=== PATIENT | female | born 1955 | race Caucasian/White ===

== ENCOUNTER 2017-06-02 15:40 | Emergency (ER) | payer MEDICAID ==
--- NOTE | 2017-06-02 17:31 | RAD ---
HISTORY: Cough COMPARISON: None available. TECHNIQUE: Chest PA and lateral FINDINGS: LUNGS: No focal consolidation. Please note that chest x-ray has limited sensitivity for the detection of pulmonary masses. PLEURA: No significant pleural effusion identified. No definite pneumothorax . CARDIOVASCULAR: The cardiomediastinal silhouette appears within normal limits of size. OSSEOUS STRUCTURES: No acute osseous abnormality identified. VISUALIZED UPPER ABDOMEN: Unremarkable. OTHER FINDINGS: None. IMPRESSION: No focal consolidation.
--- NOTE | 2017-06-02 17:33 | C.PDOC ---
History Of Present Illness 61 yo female w/o significant PMHx come in for evaluation of bodyaches, malaise, subjective fever for past 2 days, (+) occasional dry cough. Otherwise, pt denies high fever, lethargy, drooling, neck pain, CP, SOB, dyspnea, diaphoresis , palpitation,. abd. pain, V/D, UTi sx. Ambulate to ED for evaluation, not in any apparent distress. Time Seen by Provider: 06/02/17 16:47 Chief Complaint (Nursing): Flu-like Symptoms History Per: Patient Past Medical History Reviewed: Historical Data, Nursing Documentation, Vital Signs Vital Signs: Last Vital Signs Temp 98.8 F 06/02/17 16:38 Pulse 104 H 06/02/17 16:38 Resp 20 06/02/17 16:38 BP 108/70 06/02/17 16:38 Pulse Ox 99 06/02/17 16:38 - Medical History PMH: HTN Family History: States: No Known Family Hx - Social History Hx Tobacco Use: No Hx Alcohol Use: No Hx Substance Use: No - Immunization History Hx Tetanus Toxoid Vaccination: No Hx Influenza Vaccination: No Hx Pneumococcal Vaccination: No Review Of Systems Except As Marked, All Systems Reviewed And Found Negative. Constitutional: Positive for: Fever (subjective), Chills, Malaise ENT: Positive for: Nose Discharge, Nose Congestion. Negative for: Ear Discharge , Throat Pain, Throat Swelling Cardiovascular: Negative for: Chest Pain, Edema, Light Headedness Respiratory: Positive for: Cough. Negative for: Shortness of Breath, Wheezing Gastrointestinal: Negative for: Nausea, Vomiting, Abdominal Pain, Diarrhea Genitourinary: Negative for: Dysuria Musculoskeletal: Negative for: Neck Pain Skin: Negative for: Rash Neurological: Negative for: Weakness, Numbness, Altered Mental Status, Headache , Dizziness Physical Exam - Physical Exam Appears: Well, Non-toxic, No Acute Distress Skin: Normal Color, Warm, Dry, No Rash Head: Normacephalic Eye(s): bilateral: PERRL Ear(s): Bilateral: Normal Nose: No Flaring, Discharge (SCANT CLEAR B/L) Oral Mucosa: Moist, No Drooling Throat: No Erythema, No Drooling Neck: Trachea Midline, Supple Cardiovascular: Rhythm Regular, No Murmur Respiratory: No Decreased Breath Sounds, No Accessory Muscle Use, No Rales, No Rhonchi, No Stridor, No Wheezing Gastrointestinal/Abdominal: Soft, No Tenderness, No Distention, No Guarding, No Rebound Back: No CVA Tenderness Extremity: Normal ROM, No Deformity, No Swelling Neurological/Psych: Oriented x3, Normal Speech ED Course And Treatment O2 Sat by Pulse Oximetry: 99 Pulse Ox Interpretation: Normal - Radiology CXR: Interpreted by Me, Viewed By Me, Read By Radiologist CXR Interpretation: Yes: No Acute Disease Progress Note: On re-evaluation, pt is afebrile, hemodynamicaly stable. NOn- toxic. Tolerate PO well in ED. PulsEOx 99% RA. Neck: Supple, (-) meningeal sign, (-) JVD. ENT: no acute findings. Lungs: CTA B/L, BS equal B/L. Abd: benign. Back: (-) CVA tenderness. Neurologicaly intact. CXR review and appears normal study. Pt has clinical findings c/w Influenza-like illness. pt advised. ref. to f/u with PMD in 2-3 days for re-eval. return if any worsening or new changes. Disposition Counseled Patient/Family Regarding: Studies Performed, Diagnosis, Need For Followup, Rx Given - Disposition Referrals: Kathy Bautista MD [Staff Provider] - Disposition: HOME/ ROUTINE Disposition Time: 17:30 Condition: STABLE Additional Instructions: ENCOURAGE FLUIDS TAKE MEDICATION PRESCRIBED FOLLOW UP WITH PMD IN2 -3 DAYS FOR RE-EVALUATION. RETURN TO ED IF ANY WORSENING OR NEW CHANGES. Prescriptions: Ibuprofen [Motrin Tab] 600 mg PO Q6 #20 tab Oseltamivir Phosphate [Tamiflu] 75 mg PO BID #10 capsule Instructions: Influenza (ED) - Clinical Impression Clinical Impression: Influenza-like illness
[2017-06-02 18:49] VITALS: BP 118/62; PULSE 100; RESP 18; TEMP 98; O2SAT 96
== END 2017-06-02 18:07 | disposition home or self-care (01) ==
LOC: C.ER 15:40
DX: J11.1 Influenza due to unidentified influenza virus with other respiratory manifestations (principal); I10 Essential (primary) hypertension